=== PATIENT | male | born 1960 | race Caucasian/White ===

== ENCOUNTER → 2019-04-19 | Outpatient (CLI) | payer OTHER ==
[~2019-04-19] MED LIST: ACETAMINOPHEN325 M1 PO; ACETAMINOPHEN650 M5 PO; ADULT LOW DOSE81 MG PO; ADVAIR HFA 1112 UNIT INH; ALBUTEROL2.5 MG/0.1 INH; ALBUTEROL2.5 MG/31 INH; AMBIEN 10 MG TA10 MG PO; AMBIEN 5 MG TABL5 M1 PO; AMLODIPINE BESYL5 MG PO; ASA5UEC PO; ASPIR-TRIN325 MG PO; ASPIRIN EC325 M1 PO; ASPIRIN325 PO; ASPIRIN81 M2 PO; ATORVASTATIN CA40 MG PO; AUGMENTIN 875875 M1 PO; AUGMENTIN 875875 MG PO; AVELOX 400 MG400 MG PO; AZITHROMYCIN 2250 MG PO; BENAZEPRIL HCL40 MG PO; CARISOPRODOL 3350 MG PO; CARVEDILOL12.5 MG PO; CARVEDILOL25 MG PO; CEFTIN 250 MG250 MG PO; CHANTIX1 MG PO; CHLORTHALIDONE25 MG PO; CLONAZEPAM 0.50.5 M1 PO; CLONAZEPAM 1 MG1 M1 PO; CLONIDINE HCL0.2 M2 PO; COLACE100 MG PO; COMBIVENT INH; COREG PO; COREG6.25 MG PO; DICLOFENAC SODI75 M1 PO; DUONEB 2.5-0.5 M3 ML IH; EFFIENT10 MG PO; EPINEPHRIN0.3 MG/0.1 IM; FIBERCON CHEWA625 MG GT; FIRST-MOUTHWAS237 ML MM; HYDRALAZINE 2525 MG PO; HYDROCODON-ACE1 EAC5 PO; IMDUR 30 MG TAB30 M1 PO; IMDUR 60 MG TAB60 M1 PO; ISOSORBIDE DINI30 MG PO; KEPPRA 500 MG500 M1 PO; KEPPRA750 MG PO; LEVAQUIN 500 M500 M2 PO; LIPITOR20 MG PO; LIPITOR40 MG PO; LISINOPRIL20 MG PO; LISINOPRIL40 MG PO; MIRALAX255 GM PO; MYLANTA 12 OZ355 M1 PO; NASONEX17 GM NASAL; NICOTINE TRANSD21 M1 TD; NICOTINE TRANSD21 M1 TRANSDERM; NICOTINE1 EAC1 TRANSDERM; NITROGLYCERIN0.4 MG SUBLING; NITROSTAT0.4 MG SUBLING; NORCO 10-325 T1 EACH PO; NORCO 5-325 TA1 EACH PO; NORVASC 5 MG TAB5 MG PO; ONDANSETRON HCL4 M2 PO; PERCOCET PO; PLAVIX 75 MG TA75 M1 PO; PREDNISONE 10 M10 M1 PO; PREDNISONE 20 M20 MG PO; PREDNISONE 5 MG5 MG PO; PRINIVIL40 MG PO; PROAIR HFA8.5 GM IH; PROAIR HFA8.5 GM INH; PROMETHAZINE-C120 ML PO; PROTONIX40 M1 PO; PROTONIX40 M2 PO; RANEXA 500 MG500 M1; RANEXA1000 MG; RANEXA1000 MG PO; RANITIDINE HCL300 M1; RANITIDINE HCL300 M1 PO; REQUIP 0.25 M0.25 M1 PO; ROPINIROLE HCL0.5 MG PO; SERTRALINE HCL100 MG PO; SYMBICORT160 MCG/4. INH; TESSALON PERLE100 MG PO; TRAZODONE HCL100 MG PO; TYLENOL325 MG PO; VENTOLIN HFA 1818 GM INH; VIBRAMYCIN 100100 MG PO; VITAMIN D1000 UNIT PO; WELLBUTRIN 75 M75 M1 PO; ZANTAC 150MG T150 MG PO; ZESTRIL20 MG PO; ZOFRAN ODT4 MG PO; ZOLOFT100 MG PO; ZPAK PO
== END ==
LOC: RAD 16:10
DX: J44.9 Chronic obstructive pulmonary disease, unspecified (principal); J98.4 Other disorders of lung

== ENCOUNTER → 2019-06-08 | Outpatient (CLI) | payer OTHER | LOC: RAD 08:52 | DX: J44.9 Chronic obstructive pulmonary disease, unspecified (principal); J98.6 Disorders of diaphragm; I25.10 Atherosclerotic heart disease of native coronary artery without angina pectoris; E11.9 Type 2 diabetes mellitus without complications; E78.5 Hyperlipidemia, unspecified; M19.90 Unspecified osteoarthritis, unspecified site; F32.9 Major depressive disorder, single episode, unspecified; F17.210 Nicotine dependence, cigarettes, uncomplicated; Z95.5 Presence of coronary angioplasty implant and graft; Z79.899 Other long term (current) drug therapy ==

== ENCOUNTER → 2019-10-03 | Outpatient (CLI) | payer OTHER | LOC: SJCVC 11:18 | DX: I25.10 Atherosclerotic heart disease of native coronary artery without angina pectoris (principal); I10 Essential (primary) hypertension; E78.5 Hyperlipidemia, unspecified; E11.9 Type 2 diabetes mellitus without complications; J44.9 Chronic obstructive pulmonary disease, unspecified; F17.210 Nicotine dependence, cigarettes, uncomplicated; Z95.5 Presence of coronary angioplasty implant and graft; Z79.899 Other long term (current) drug therapy ==

== ENCOUNTER → 2019-10-03 | Outpatient (CLI) | payer OTHER | LOC: SJCVC 11:54 | DX: I25.10 Atherosclerotic heart disease of native coronary artery without angina pectoris (principal); I10 Essential (primary) hypertension; E78.5 Hyperlipidemia, unspecified; E11.9 Type 2 diabetes mellitus without complications; J44.9 Chronic obstructive pulmonary disease, unspecified; F17.210 Nicotine dependence, cigarettes, uncomplicated; Z95.5 Presence of coronary angioplasty implant and graft; Z79.899 Other long term (current) drug therapy ==

== ENCOUNTER → 2020-01-10 | Outpatient (CLI) | payer OTHER | LOC: RAD 08:06 | PROVIDERS: ATTEND Internal Medicine | DX: J98.11 Atelectasis (principal); R91.8 Other nonspecific abnormal finding of lung field; J98.4 Other disorders of lung ==

== ENCOUNTER → 2020-04-04 | Outpatient (CLI) | payer OTHER | LOC: SJCVCIMAG 08:15 | PROVIDERS: ATTEND Internal Medicine | DX: I25.10 Atherosclerotic heart disease of native coronary artery without angina pectoris (principal); I10 Essential (primary) hypertension; E78.5 Hyperlipidemia, unspecified; J44.9 Chronic obstructive pulmonary disease, unspecified; F17.210 Nicotine dependence, cigarettes, uncomplicated; Z79.899 Other long term (current) drug therapy ==

== ENCOUNTER → 2020-08-06 | Outpatient (CLI) | payer OTHER | LOC: CAT 12:02 | PROVIDERS: ATTEND Internal Medicine | DX: Z12.2 Encounter for screening for malignant neoplasm of respiratory organs (principal); J98.11 Atelectasis; Z72.0 Tobacco use ==

== ENCOUNTER → 2020-10-02 | Outpatient (CLI) | payer OTHER | LOC: SJCVC 10:05 | PROVIDERS: ATTEND Internal Medicine | DX: R94.31 Abnormal electrocardiogram [ECG] [EKG] (principal); I25.10 Atherosclerotic heart disease of native coronary artery without angina pectoris; I10 Essential (primary) hypertension; E78.5 Hyperlipidemia, unspecified; E11.9 Type 2 diabetes mellitus without complications; J44.9 Chronic obstructive pulmonary disease, unspecified; F17.210 Nicotine dependence, cigarettes, uncomplicated; M19.90 Unspecified osteoarthritis, unspecified site ==

== ENCOUNTER → 2021-04-25 | Outpatient (CLI) | payer OTHER | LOC: SJCVC 13:59 | PROVIDERS: ATTEND Internal Medicine | DX: R94.31 Abnormal electrocardiogram [ECG] [EKG] (principal); I25.10 Atherosclerotic heart disease of native coronary artery without angina pectoris; I10 Essential (primary) hypertension; E78.5 Hyperlipidemia, unspecified; E11.9 Type 2 diabetes mellitus without complications; J44.9 Chronic obstructive pulmonary disease, unspecified; F17.210 Nicotine dependence, cigarettes, uncomplicated; Z79.82 Long term (current) use of aspirin; Z79.899 Other long term (current) drug therapy ==

== ENCOUNTER → 2021-08-13 | Outpatient (CLI) | payer OTHER | LOC: CAT 11:29 | PROVIDERS: ATTEND Family Medicine | DX: Z12.2 Encounter for screening for malignant neoplasm of respiratory organs (principal); Z87.891 Personal history of nicotine dependence ==